=== PATIENT | male | born 1975 | race African-American/Black ===

== ENCOUNTER 2018-06-11 07:45 | Emergency (ER) | payer OTHER ==
[2018-06-11 07:52] VITALS: BP 159/86; PULSE 98; TEMP 99; BMI 33.2
[2018-06-11] MEDS ORDERED: IBUPROFEN 400 MG TABLET (FP) PO ONE ×2 (08:07→08:17)
--- NOTE | 2018-06-11 08:11 | PDOC ---
History of Present Illness - General Chief Complaint: Headache Stated Complaint: BLOOD PRESSURE CHECK, DIZZINESS Time Seen by Provider: 06/11/18 07:58 History Source: Patient - History of Present Illness Severity: mild Past History - Past Medical History Allergies/Adverse Reactions: Allergies Allergy/AdvReac Type Severity Reaction Status Date / Time Penicillins Allergy Verified 06/11/18 07:52 Home Medications: Ambulatory Orders Hydrochlorothiazide [Hctz -] 12.5 mg PO DAILY 06/11/18 Metoprolol Succinate [Toprol Xl] 50 mg PO DAILY 06/11/18 Ramipril [Altace] 10 mg PO DAILY 06/11/18 - Suicide/Smoking/Psychosocial Hx Smoking History: Never smoked Have you smoked in the past 12 months: No Information on smoking cessation initiated: No Hx Alcohol Use: No Drug/Substance Use Hx: No Review of Systems - Review of Systems Constitutional: No: Chills, Fever HEENTM: No: Blurred Vision ABD/GI: No: Nausea, Vomiting Neurological: Yes: Headache, Dizziness. No: Numbness, Tingling, Weakness *Physical Exam - Vital Signs Last Vital Signs Temp Pulse Resp BP Pulse Ox 99.0 F 98 H 18 159/86 100 06/11/18 07:49 06/11/18 07:49 06/11/18 07:49 06/11/18 07:49 06/11/18 07:49 - Physical Exam Comments: 06/11/18 08:21 Pt appears well, currently sitting in chair and texting on his phone General Appearance: Yes: Appropriately Dressed. No: Apparent Distress HEENT: positive: Normal Voice Neck: positive: Supple Respiratory/Chest: positive: Lungs Clear, Normal Breath Sounds. negative: Respiratory Distress Cardiovascular: positive: Regular Rate, S1, S2 Integumentary: positive: Dry, Warm Neurologic: positive: Fully Oriented, Alert, Normal Mood/Affect, Motor Strength 5/5 Medical Decision Making - Medical Decision Making 06/11/18 08:05 42 yo M, h/o HTN on meds, here w/ lightheadedness and vague [place]CH[place] this am while at work. States symptoms have since improved but came to ER because he was concerned about his BP as he did not take his meds this am. Reports compliancy for the most part. No vertigo, blurry vision, slurred speech, focal weakness, chest pain or shortness of breath. See exam BUTCHER w/ dizziness this am Since improved Well [place] and stable w/ no focal deficit No indication for neuroimaging at this time -dose of motrin in ED -anticipate dc to resume BP meds -to return as needed *DC/Admit/Observation/Transfer Diagnosis at time of Disposition: Dizziness Headache Qualifiers: Headache type: unspecified - Discharge Dispostion Disposition: HOME Condition at time of disposition: Improved - Referrals - Patient Instructions Printed Discharge Instructions: DI for Dizziness-Nonvertigo Additional Instructions: Your vitals and exam were unremarkable here Resume your BP meds Return to ER for worsening of symptoms - Post Discharge Activity
== END 2018-06-11 09:37 | disposition home or self-care (01) ==
LOC: JER 07:45
DX: R42 Dizziness and giddiness (principal); I10 Essential (primary) hypertension
CPT/HCPCS: 99281-25